=== PATIENT | male | born 1940 | race Native Hawaiian/Other Pacific Islander ===

== ENCOUNTER 2016-08-17 07:36 | Outpatient (CLI) | payer OTHER | END 2016-08-17 22:56 | disposition home or self-care (01) | LOC: LABW 07:36 | DX: N40.0 Benign prostatic hyperplasia without lower urinary tract symptoms (principal); R97.20 Elevated prostate specific antigen [PSA] | CPT/HCPCS: 36415; 84153 ==

== ENCOUNTER 2017-08-16 08:05 | Outpatient (CLI) | payer OTHER | END 2017-08-16 09:10 | disposition home or self-care (01) | LOC: LABW 08:05 | DX: R97.20 Elevated prostate specific antigen [PSA] (principal); N40.0 Benign prostatic hyperplasia without lower urinary tract symptoms | CPT/HCPCS: 36415; 84153 ==

== ENCOUNTER 2018-04-24 09:26 | Outpatient (CLI) | payer OTHER | END 2018-04-24 23:28 | disposition home or self-care (01) | LOC: RAD 09:26 | DX: M25.561 Pain in right knee (principal) ==

== ENCOUNTER 2021-07-29 15:07 | Emergency (ER) | payer OTHER ==
[~2021-07-29] VITALS: Ht 170.2 cm; Wt 74.8 kg
[2021-07-29 15:17] VITALS: TEMP 98.7
[2021-07-29 15:57] LABS: PLATELET COUNT 256 K/uL (142-355)
[2021-07-29 16:10] LABS: POTASSIUM 4.5 mmol/L (3.6-5.2)
[2021-07-29 17:45] VITALS: BP 153/91
== END 2021-07-29 17:49 | disposition home or self-care (01) ==
LOC: ED 15:07
PROVIDERS: Emergency Medicine Emergency Medical Services
DX: S46.812A Strain of other muscles, fascia and tendons at shoulder and upper arm level, left arm, initial encounter (principal); X58.XXXA Exposure to other specified factors, initial encounter; Y92.89 Other specified places as the place of occurrence of the external cause
CPT/HCPCS: 80053; 84484; 85027; 93005; 96374; 99284; J1885

== ENCOUNTER 2022-08-04 08:48 | Outpatient (CLI) | payer OTHER | END 2022-08-04 19:00 | disposition home or self-care (01) | LOC: LABW 08:48 | PROVIDERS: ATTEND Urology | DX: C61 Malignant neoplasm of prostate (principal) | CPT/HCPCS: 36415; 84153 ==

== ENCOUNTER 2023-02-09 08:01 | Outpatient (CLI) | payer OTHER | END 2023-02-09 20:20 | disposition home or self-care (01) | LOC: LABW 08:01 | PROVIDERS: ATTEND Urology | DX: C61 Malignant neoplasm of prostate (principal) | CPT/HCPCS: 36415; 84153 ==